=== PATIENT | female | born 1995 | race Caucasian/White ===

== ENCOUNTER → 2018-01-27 09:01 | Outpatient (CLI) | payer BC, SELFPAY | PROVIDERS: PCP Family Medicine; Visit Provider Family Medicine | DX: E03.9 Hypothyroidism, unspecified (principal) | CPT/HCPCS: 36415; 84443 ==

== ENCOUNTER → 2018-09-08 13:52 | Outpatient (CLI) | payer BC, SELFPAY ==
[2018-09-08 15:15] LABS: Thyroid Stimulating Hormone 2.33 uIU/mL (0.47-4.68)
[2018-09-09 13:31] LABS: Free T4, Direct Thyroxine 1.38 ng/dL (0.78-2.19)
[2018-09-10 15:52] LABS: Anti Thyroglobulin Antibody < 1 IU/mL (< 2); Thyroid Peroxidase Antibodies 2 IU/mL (< 9)
== END ==
PROVIDERS: Family Provider Physician Assistant Medical; PCP Family Medicine; Visit Provider Registered Nurse
DX: E03.9 Hypothyroidism, unspecified (principal)
CPT/HCPCS: 36415; 84439; 84443; 86376; 86800

== ENCOUNTER → 2019-02-11 10:15 | Outpatient (CLI) | payer BC, SELFPAY ==
[2019-02-11 11:04] LABS: Add Manual Diff / Slide Review NO; Alanine Aminotransferase 23 IU/L (9-52); Albumin 4.6 g/dL (3.5-5.0); Albumin Globulin Ratio 1.5 (1.0-2.8); Alkaline Phosphatase 70 U/L (38-126); Aspartate Aminotransferase 27 IU/L (14-36); BUN Creatinine Ratio 18.8 (6-22); Basophils Absolute Auto 100 /uL (0-100); Basophils Percent Auto 0.7 % (0-2); Bilirubin Total 0.7 mg/dL (0.2-1.3); Blood Urea Nitrogen 15 mg/dL (7-17); Calcium 9.6 mg/dL (8.4-10.2); Carbon Dioxide 29 mmol/L (22-32); Chloride 100 mmol/L (98-107); Eosinophils Absolute Auto 300 /uL (0-450); Eosinophils Percent Auto 3.7 % (2-4); Estimated Glomerular Filt Rate > 60.0 mL/min (>60); Glucose 85 mg/dL (70-100); HEMOLYSIS < 15 (0-50); Hematocrit 43.2 % (36-46); Lymphocytes Absolute Auto 1900 /uL (1100-4500); Lymphocytes Percent Auto 23.1 % (25-40); Mean Corpuscular HGB Conc 34.7 % (30-36); Mean Corpuscular Hemoglobin 30.4 PG (26-34); Mean Corpuscular Volume 87.7 fL (80-100); Monocytes Absolute Auto 600 /uL (0-900); Monocytes Percent Auto 7.3 % (3-14); Neutrophils Absolute Auto 5200 /uL (1500-7000); Neutrophils Percent Auto 65.2 % (50-75); Platelet Count 256 X10^3/uL (150-400); Potassium 4.1 mmol/L (3.4-5.1); Red Blood Cell Count 4.93 X10^6/uL (4.0-5.2); Red Cell Distribution Width 13.1 % (11.6-14.8); Sodium 139 mmol/L (137-145); Total Protein 7.6 g/dL (6.3-8.2)
[2019-02-11 11:21] LABS: Prolactin 28.8 ng/mL (3.0-18.6)
[2019-02-11 11:35] LABS: Cortisol AM (Before 10AM) 9.22 ug/dL (4.46-22.7)
== END ==
PROVIDERS: PCP Family Medicine; Visit Provider Family Medicine
DX: R53.83 Other fatigue (principal); N91.2 Amenorrhea, unspecified; R63.5 Abnormal weight gain
CPT/HCPCS: 36415; 80053; 82533; 84146; 85025

== ENCOUNTER → 2019-02-16 08:28 | Outpatient (CLI) | payer BC, SELFPAY ==
[2019-02-16 10:49] LABS: Prolactin 13.8 ng/mL (3.0-18.6)
== END ==
PROVIDERS: PCP Family Medicine; Visit Provider Family Medicine
DX: E22.9 Hyperfunction of pituitary gland, unspecified (principal); R63.5 Abnormal weight gain
CPT/HCPCS: 36415; 82533; 84146

== ENCOUNTER → 2019-10-05 12:38 | Outpatient (CLI) | payer BC, SELFPAY ==
--- NOTE | 2019-10-05 12:39 | DI.US.S_ITS ---
ULTRASOUND OF RIGHT BREAST: 10/05/2019 CLINICAL: Rt breast tenderness with diffuse mass area. No prior exams were available for comparison. Ultrasound of the right breast was performed on the area of interest. Rodriguez scale images of the real-time examination were reviewed. IMPRESSION: NEGATIVE There is no sonographic evidence of malignancy. There is no sonographic abnormality seen in the right breast to correspond with the palpable abnormality, however, clinical followup is recommended. This exam was interpreted at Station ID: [id number]. Electronically Signed By: Brenda Meng M.D. lk/:10/05/2019 14:39:35 letter sent: Clinical Evaluation Ultrasound BI-RADS: 1 Negative
[2019-10-05 16:41] LABS: Thyroid Stimulating Hormone 2.84 uIU/mL (0.47-4.68)
== END ==
PROVIDERS: PCP Family Medicine; Referring Provider Family Medicine; Visit Provider Registered Nurse
DX: N63.10 Unspecified lump in the right breast, unspecified quadrant (principal); N64.4 Mastodynia; E03.9 Hypothyroidism, unspecified
CPT/HCPCS: 36415; 76642; 84443

== ENCOUNTER → 2020-06-09 12:12 | Outpatient (CLI) | payer OTHER, SELFPAY ==
[2020-06-09] MEDS: COVID-19 VACC(MODERNA-1)/PF 100 MCG/0.5 ML VIAL IM (12:19)
== END ==
PROVIDERS: PCP Family Medicine; Visit Provider Internal Medicine
DX: Z23 Encounter for immunization (principal)
CPT/HCPCS: 0011A; 91301

== ENCOUNTER → 2020-07-06 09:24 | Outpatient (CLI) | payer OTHER, SELFPAY ==
[2020-07-06] MEDS: COVID-19 VACC #2, MRNA(MOD) 100 MCG/0.5 ML VIAL IM (09:32)
== END ==
PROVIDERS: PCP Family Medicine; Visit Provider Internal Medicine
DX: Z23 Encounter for immunization (principal)
CPT/HCPCS: 0012A; 91301

== ENCOUNTER → 2021-07-13 08:26 | Outpatient (CLI) | payer OTHER, SELFPAY ==
[2021-07-13 10:07] LABS: Add Manual Diff / Slide Review NO; Basophils Absolute Auto 0 /uL (0-100); Basophils Percent Auto 0.6 % (0-2); Eosinophils Absolute Auto 200 /uL (0-450); Eosinophils Percent Auto 3.3 % (2-4); Hematocrit 40.8 % (36-46); Hemoglobin 14.1 g/dL (12.0-16.0); Lymphocytes Absolute Auto 2100 /uL (1100-4500); Lymphocytes Percent Auto 33.9 % (25-40); Mean Corpuscular HGB Conc 34.5 % (30-36); Mean Corpuscular Hemoglobin 29.7 PG (26-34); Monocytes Absolute Auto 600 /uL (0-900); Neutrophils Absolute Auto 3300 /uL (1500-7000); Neutrophils Percent Auto 53.2 % (50-75); Platelet Count 298 X10^3/uL (150-400); Red Blood Cell Count 4.75 X10^6/uL (4.0-5.2); Red Cell Distribution Width 13.1 % (11.6-14.8); White Blood Cell Count 6.1 X10^3/uL (4.5-11.0)
[2021-07-13 13:35] LABS: HCG Quantitative /Beta subunit < 2.4 mIU/mL
== END ==
PROVIDERS: PCP Family Medicine; Referring Provider Family Medicine; Visit Provider Family Medicine
DX: N92.0 Excessive and frequent menstruation with regular cycle (principal); T83.89XA Other specified complication of genitourinary prosthetic devices, implants and grafts, initial encounter
CPT/HCPCS: 36415; 84702; 85025

== ENCOUNTER → 2021-12-21 07:07 | Outpatient (CLI) | payer OTHER, SELFPAY ==
[2021-12-21 09:42] LABS: HCG Quantitative /Beta subunit < 2.4 mIU/mL
== END ==
PROVIDERS: PCP Family Medicine; Referring Provider Family Medicine; Visit Provider Family Medicine
DX: O03.9 Complete or unspecified spontaneous abortion without complication (principal)
CPT/HCPCS: 36415; 84702

== ENCOUNTER → 2022-04-06 08:06 | Outpatient (CLI) | payer OTHER, SELFPAY ==
[2022-04-06 09:39] LABS: TSH w/ Reflex to FT4 2.03 uIU/mL (0.47-4.68)
== END ==
PROVIDERS: PCP Family Medicine; Referring Provider Family Medicine; Visit Provider Family Medicine
DX: E03.9 Hypothyroidism, unspecified (principal)
CPT/HCPCS: 36415; 84443

== ENCOUNTER → 2024-04-09 09:26 | Outpatient (CLI) | payer OTHER, SELFPAY ==
--- NOTE | 2024-04-09 09:27 | DI.RAD.S_ITS ---
PROCEDURE: XR CHEST 2V INDICATIONS: Cough TECHNIQUE: 2 views of the chest were acquired. COMPARISON: None. FINDINGS: Surgical changes and devices: None. Lungs and pleura: Lungs are clear. No pleural effusions or pneumothorax. Mediastinum: Mediastinal contours are normal. Heart size is normal. Bones and chest wall: No suspicious bony abnormalities. Soft tissues appear unremarkable. IMPRESSION: No acute pulmonary process. Dictated by: Kate Celeste M.D. on 04/09/2024 at 11:33 Approved by: Kate Celeste M.D. on 04/09/2024 at 11:33
== END ==
PROVIDERS: PCP Family Medicine; Referring Provider Family Medicine; Visit Provider Family Medicine
DX: R05.9 Cough, unspecified (principal)
CPT/HCPCS: 71046